=== PATIENT | female | born 1985 | race Caucasian/White ===

== ENCOUNTER 2023-12-08 07:00 | Outpatient (NON) | payer OTHER, SELFPAY | END 2023-12-08 07:01 | disposition home or self-care (01) | LOC: ANHLAB 12-11 06:51 | PROVIDERS: PCP Registered Nurse; Visit Provider Obstetrics & Gynecology | DX: R93.89 Abnormal findings on diagnostic imaging of other specified body structures (principal) | CPT/HCPCS: 88305 ==

== ENCOUNTER 2023-12-08 11:41 | Day surgery (SDC) | payer OTHER, SELFPAY ==
[2023-11-28 13:35] VITALS: BMI 25.0
--- NOTE | 2023-12-08 12:13 | PM.IMHP ---
H&P: HPI History of Present Illness Date/Time: 12/08/23 12:13 Chief Complaint: Heavy bleeding Narrative: 38 y/o with heavy, irregular vaginal bleeding. A benign cervical polyp was removed in the office, but ultrasound exam shows a 1.7 cm endometrial mass. I have recommended hysteroscopy with D&C to evaluate and treat her problem. Review of Systems Review of Systems: All systems reviewed & are unremarkable except as noted in HPI and below PMFSH Past Medical History Medical History Depression with anxiety Social History Social History Smoking status: Never smoker Second hand tobacco smoke exposure: Yes Alcohol intake: current Alcohol use details: 8 drinks monthly Substance use type: does not use Living arrangements: with family Spiritual care concerns: No Meds Home Medications and Allergies Home Medications Medication Instructions Recorded Confirmed Type bupropion HCl 300 mg 24 hr tablet, 300 mg PO DAILY 11/28/23 11/28/23 History extended release cholecalciferol (vitamin D3) 100 4,000 unit PO DAILY 11/28/23 11/28/23 History mcg (4,000 unit) capsule fluticasone propionate 50 1 spray intranasal DAILY 11/28/23 11/28/23 History mcg/actuation nasal spray,suspension Allergies Allergy/AdvReac Type Severity Reaction Status Date / Time Sulfa (Sulfonamide Allergy Mild Rash Verified 11/28/23 13:15 Antibiotics) Exam Const: Orientation/consciousness: patient oriented x3 Other: Well-developed, well-nourished female in no acute distress. Neck: Thyroid: thyroid normal Lymphatic: no lymphadenopathy noted (in neck, axilla or inguinal nodes) Resp: Effort & Inspection: normal respiratory effort Auscultation: clear to auscultation bilaterally Cardio: Rate: regular rate Rhythm: regular rhythm Heart sounds: S1 normal heart sound present and S2 normal heart sound present GI: Other: ABD: Soft, nontender, nondistended. No guarding or rebound tenderness. No hepatosplenomegaly. : General: Yes no CVA tenderness Other: External genitalia: normal female hair distribution, without lesion. Urethral meatus: no lesion, non prolapsed. Bladder: no mass, nontender Vagina: well-estrogenized, without lesion or discharge. No cystocele or rectocele. Cervix: no lesion or discharge. Uterus: small, anteverted, freely mobile, nontender Adnexa: no mass or tenderness. Anus/perineum: no lesions, nontender Back/Spine/Pelvis: Back: no CVA tenderness Skin: General skin exam: normal color and no rashes or lesions noted Neuro: General: patient oriented x3 Extrem: Other: Extremities: nontender with no edema Psych: Mental Status: mental status grossly normal Affect: normal affect Assessment and Plan Assessment and plan (1) Menometrorrhagia: Code(s): N92.1 - Excessive and frequent menstruation with irregular cycle Status: Acute Assessment and Plan: A: Menometrorrhagia with likely endometrial polyp. P: Offered hysteroscopy with dilation and sharp curettage, and endometrial polypectomy. She understands risks of surgery to include risks of anesthesia, risks of pain, infection, bleeding, blood products, thromboembolic phenomena and damage to adjacent structures such as bowel, bladder, ureters, blood vessels and nerves. She understands all these risks and elects to proceed with surgery. (2) Abnormal pelvic ultrasound: Code(s): R93.89 - Abnormal findings on diagnostic imaging of other specified body structures Status: Acute
--- NOTE | 2023-12-08 12:16 | WPDHPUPDATE1 ---
History and Physical Update Update Date/Time: 12/08/23 12:16 History and Physical has been reviewed, including an updated exam of the patient. There are NO changes in the patient's condition. Risks, benefits, and alternatives have been discussed and questions answered. Patient agrees to proceed with procedure.
[2023-12-08 12:29] VITALS: BP 103/70; PULSE 53; RESP 16; TEMP 37.2; O2SAT 100
[2023-12-08] MEDS: ACETAMINOPHEN 500 MG TABLET 1000 MG PO (12:36)
--- NOTE | 2023-12-08 12:40 | P.PNAN_ITS ---
Anes - Initial Pre Proc Eval Procedure: Operation Date: 12/08/23 13:30 Proposed Procedures p Hysteroscopy with Dilation and Curettage and Polypectomy - Wilmar Doty MD Date/Time: 12/08/23 12:40 Surgeon: Wilmar Doty MD Pre Op Diagnosis: Irregular Vaginal Bleeding and Uterine Polyp Patient Data Age: 38 Gender: F Height: 1.65 m Weight: 68.3 kg Allergies Allergy/AdvReac Type Severity Reaction Status Date / Time Sulfa (Sulfonamide Allergy Mild Rash Verified 12/08/23 12:40 Antibiotics) Home Medications Medication Instructions Recorded Confirmed Type bupropion HCl 300 mg 24 hr tablet, 300 mg PO DAILY 11/28/23 12/08/23 History extended release cholecalciferol (vitamin D3) 100 4,000 unit PO DAILY 11/28/23 12/08/23 History mcg (4,000 unit) capsule fluticasone propionate 50 1 spray intranasal DAILY 11/28/23 12/08/23 History mcg/actuation nasal spray,suspension hydrocodone 5 mg-acetaminophen 325 1 tablet PO Q4H PRN pain #10 tabs 12/08/23 Rx mg tablet Patient hx anesthesia problems: none Family hx anesthesia problems: none Results Review: All pre-operative results and documents have been reviewed as part of the pre-operative evaluation. [facility] Past Medical History Medical History (Updated 12/08/23 @ 12:40 by Miquel Rodas DO) Depression with anxiety Seizure x1, 1994, no meds Social History Social History Smoking status: Never smoker Second hand tobacco smoke exposure: Yes Alcohol intake: current Alcohol use details: 8 drinks monthly Substance use type: does not use Living arrangements: with family Spiritual care concerns: No Anes - Eval Final PreProcedure Day of Procedure 12/08/23 12:40 Patient weight: overweight Heart: regular rate and rhythm Lungs: clear to auscultation Airway: Mallampati scale class II Neurological: alert and oriented Last oral intake: >/= 8 hours ASA classification: II Emergent: no Anesthetic plan: proceed Anesthesia type and monitoring: general GIVS and standard monitoring Results Review: All pre-operative results and documents have been reviewed as part of the pre- operative evaluation. Informed Consent: The patient's anesthetic plan and its attendant risks and benefits were discussed with the patient/family/POA. Questions were solicited and answers provided to the satisfaction of the patient/family/POA.
[2023-12-08] MEDS: LACTATED RINGERS 1,000 ML 30 ML IV CONT (12:57)
[2023-12-08] MEDS: LIDOCAINE HCL 1% LOCAL INJ 20 ML VIAL 10 ML INFILTRATE (14:21)
[2023-12-08 14:32] VITALS: BP 93/59; PULSE 71; RESP 15; O2SAT 100
--- NOTE | 2023-12-08 14:32 | W.PM.PROC2 ---
Procedure Note - Detailed Date of Procedure 12/08/23 Pre-op Diagnosis Menometrorrhagia Abnormal pelvic ultrasound Post-op Diagnosis Other (Endometrial polyp) Procedure Performed Hysteroscopy Dilation and sharp curettage Endometrial polypectomy Surgeon Wilmar Doty MD Anesthesia MAC and Local (1% lidocaine) Findings Endometrial polyp. Both tubal ostia seen. Description of Procedure The patient was taken to the operating room where she was prepared and draped in the usual sterile fashion in the dorsal lithotomy position. The bladder was drained with a red rubber catheter. A sterile speculum was placed into the vagina. The anterior lip of the cervix was grasped with single-tooth tenaculum. Ten mL of 1% lidocaine was administered in a paracervical block. The cervix was then gently dilated using Hegar dilators until an 8 mm dilator could be passed. Hysteroscopy was performed using sterile saline as a distention medium. Findings are as noted above. A polyp forceps was used to grasp and easily remove the endometrial polyp. Sharp curettage was then performed, and endometrial curettings were collected on a Telfa pad and passed off to be sent to pathology. A second look was taken with the hysteroscope, and the polyp was noted to have been completely excised. Hemostasis was excellent. Sponge, lap, needle and instrument counts were correct. The patient was awakened and taken to the recovery room in stable condition. I was present and scrubbed through the entire procedure. Implants None Estimated Blood Loss 5 Drains No Packing No Pathology Yes (Endometrial curettings with polyp) Complications None Condition Stable Disposition PACU
--- NOTE | 2023-12-08 14:34 | WPDANESPN ---
Anes - Prog Note Post-Op Date/Time: 12/08/23 14:34 Cardiovascular status: normal Respiratory status: normal Airway patency: baseline Mental status: baseline Post-Op hydration status: normal Vital Signs: Last Vital Signs Temp 37.2 C 12/08/23 12:29 Pulse 53 L 12/08/23 12:29 Resp 16 12/08/23 12:29 BP 103/70 12/08/23 12:29 Pulse Ox 100 12/08/23 12:29 O2 Del Method Room Air 12/08/23 12:29 Pain Score (VAS): 0 I/O: Intake & Output 12/07/23 12/08/23 12/08/23 23:59 07:59 15:59 Output Total 50 Balance -50 Post-procedural complaints: none Patient Feedback: Patient satisfied with anesthetic care. Other Findings: Patient vital signs back to baseline. Patient denies nausea and vomiting. Patient's pain under control. Patient OK for discharge.
[2023-12-08 14:42] VITALS: BP 96/64; PULSE 54; RESP 16; O2SAT 100
[2023-12-08 14:52] VITALS: BP 100/66; PULSE 55; RESP 16; O2SAT 100
== END 2023-12-08 14:58 | disposition home or self-care (01) ==
PROVIDERS: PCP Registered Nurse; Visit Provider Obstetrics & Gynecology
PROC: 0U5B8ZZ Destruction of Endometrium, Via Natural or Artificial Opening Endoscopic (ICD-10-PCS; CPT 58563; principal; 2023-12-08 13:30)
DX: N92.1 Excessive and frequent menstruation with irregular cycle (principal); N84.0 Polyp of corpus uteri
CPT/HCPCS: 58558